=== PATIENT | male | born 1980 | race Caucasian/White ===

== ENCOUNTER 2017-05-02 18:33 | Emergency (ER) | payer SELFPAY ==
[~2017-05-02] VITALS: Ht 170.2 cm; Wt 63.5 kg
[2017-05-02 18:37] VITALS: Ht 170.2 cm; Wt 63.5 kg
[2017-05-02] MEDS ORDERED: SOD CHLORIDE 0.9% 1,000 ML IV ONE (19:00)
[2017-05-02] MEDS ORDERED: ACETAMINOPHEN 325 MG TAB PO ONE (19:00)
--- NOTE | 2017-05-02 19:16 | ERD ---
ER Documentation Chief Complaint Chief Complaint anxiety, headache, sob since 1 hour ago HPI Patient is a 36-year-old male who presents with multiple complaints. States he has been feeling anxious today. States he has felt like this in the past, it has happened multiple times in the past. States it occurs when he is stressed, sometimes when he is in traffic and he feels palpitations, headache, dizziness and anxious. Patient found out this morning that his was cheating on him and he became stressed out. Patient had 7 beers last night and 4 beers this afternoon and feels thirsty. In this specific moment, patient states he does not feel anxious, sob, chest pain or have pain except for lower bilateral neck pain. States when he moves his neck from side to side he feels tension. Denies leg pain, leg swelling, sob, chest pain. No other c/o ROS All systems reviewed and are negative except as per history of present illness. Allergies Allergies: Coded Allergies: No Known Allergy (Unverified , 05/02/17) PMhx/Soc History of Surgery: No Anesthesia Reaction: No Hx Neurological Disorder: No Hx Respiratory Disorders: No Hx Cardiac Disorders: No Hx Psychiatric Problems: No Hx Miscellaneous Medical Probl: No Hx Alcohol Use: No Hx Substance Use: Yes (weekends) Hx Tobacco Use: No Smoking Status: Current every day smoker (2 cigarettes/day) FmHx Family History: No coronary disease, No diabetes, No other Physical Exam Vitals Physical Exam GENERAL: Well-developed, well-nourished male. Appears in no acute distress. HEAD: Normocephalic, atraumatic. EYES: Pupils are equally reactive bilaterally. EOMs grossly intact. No conjunctival erythema. ENT: Moist mucous membranes. No uvula deviation. No kissing tonsils. No exudates. NECK: Supple. No lymphadenopathy or thyromegaly. No meningismus. negative kernig. negative brudinski. LUNG: Clear to auscultation bilaterally. No rhonchi, wheezing, rales or coarse breath sounds. HEART: Regular rate and rhythm. No murmurs, rubs or gallops. BACK: No midline tenderness. Extremities: Equal pulses bilaterally. No peripheral clubbing, cyanosis or edema. No unilateral leg swelling. NEUROLOGIC: Alert and oriented. Moving all four extremities. 5/5 strength in all extremities. Normal speech. Steady gait. Cn 2-12 intact. SKIN: Normal color. Warm and dry. No rashes or lesions. Capillary refill < 2 seconds Results 24 hrs Current Medications Medications (Trade) Dose Ordered Sig/Edson Route PRN Reason Start Time Stop Time Status Last Admin Dose Admin Sodium Chloride (NS) 1,000 ml @ 1,000 mls/hr Q1H ONCE IV 05/02/17 19:00 05/02/17 19:59 DC 05/02/17 19:31 Acetaminophen (Tylenol Tab) 650 mg ONCE ONCE PO 05/02/17 19:00 05/02/17 19:03 DC 05/02/17 19:31 Procedures/MDM ER COURSE: I kept the patient and/or family informed of laboratory and diagnostic imaging results throughout the emergency room course. MEDICAL DECISION MAKING: This is a 36-year-old male who presents with with multiple complaints. Vital signs were reviewed. Patient is afebrile. Patient is not hypoxic. Patient is not toxic or ill-appearing. Patient's EKG as read by Dr. Rutherford EKG performed, read by Dr Rutherford 118bpm, sinus tachychardia normal axis, no acute ST segment changes, no T wave inversion, no STEMI. Patient was given 1 L of normal saline. Tolerated well and had improvement in symptoms. Low suspicion for ACS , PE, AAA, dissection, DVT Low suspicion for intracranial hemorrhage, meningitis , intracranial mass, concussion, temporal arteritis, stroke, elevated intracranial pressure, seizure. DISCHARGE: At this time, patient is stable for discharge and outpatient management with no new complaints during the ER course. Patient was sent home with Tylenol. Patient will be discharged home with instructions to recheck for new or worsening symptoms such as fever, nausea, weakness, LOC and to follow up with primary care in the next 1-2 days. Patient was advised to return to the ER for any new or worsening symptoms. Plan was discussed and patient and/or family understands and agrees. Home instructions were given. Departure Diagnosis: Primary Impression: Stress reaction Condition: Stable NEIL VILLARREAL PA-C May 02, 2017 19:16
[2017-05-02 20:30] VITALS: BP 133/78; PULSE 98; RESP 20; TEMP 98.4
== END 2017-05-02 20:42 | disposition home or self-care (01) ==
LOC: FTE 18:33
DX: F43.0 Acute stress reaction (principal); F17.210 Nicotine dependence, cigarettes, uncomplicated; R06.02 Shortness of breath
CPT/HCPCS: 93005; 99284; J7030